=== PATIENT | male | born 1995 | race Caucasian/White ===

== ENCOUNTER 2017-03-15 16:07 | Emergency (ER) | payer OTHER ==
[~2017-03-15] VITALS: Ht 177.8 cm; Wt 88.1 kg
[~2017-03-15 16:07] MED LIST: NAPROSYN500 MG PO; PHENERGAN-CODE120 ML PO; ZITHROMAX Z-PA250 MG PO
[2017-03-15] MEDS ORDERED: NORCO 5/3251 TABLET PO (18:32)
[2017-03-15 18:51] VITALS: BP 144/78
== END 2017-03-15 18:52 | disposition home or self-care (01) ==
LOC: RME 16:07 → EME 16:07 → RME 18:52
DX: K40.90 Unilateral inguinal hernia, without obstruction or gangrene, not specified as recurrent (principal); J45.909 Unspecified asthma, uncomplicated; F17.200 Nicotine dependence, unspecified, uncomplicated
CPT/HCPCS: 76870; 99281; 99283